=== PATIENT | female | born 1950 | race Caucasian/White ===

== ENCOUNTER → 2016-11-14 | Outpatient (CLI) | payer MEDICARE, OTHER ==
[2016-11-14 10:34] LABS: BASOPHILS % (AUTO) 1 % (0-2); EOSINOPHILS # (AUTO) 0.3 10^3uL; EOSINOPHILS % (AUTO) 4 % (0-4); MEAN CORPUSCULAR HGB CONC 33.4 g/dL (31.0-37.0); MEAN CORPUSCULAR VOLUME 94 FL (80-100); MONOCYTES # (AUTO) 0.4 X10^3; MONOCYTES % (AUTO) 7 % (3-11); NEUTROPHILS # (AUTO) 2.9 X10^3; NEUTROPHILS % (AUTO) 52 % (51-67); PLATELET COUNT 111 10^3uL (150-450); WHITE BLOOD COUNT 5.62 10^3uL (4.0-11.0)
[2016-11-14 10:49] LABS: ALBUMIN 4.5 g/dL (3.4-5.0); ANION GAP 16.1 MEQ/L (3-15); BILIRUBIN,URINE Negative (Negative); CALCULATED IONIZED CALCIUM 4.1 mg/dL (3.8-4.6); CLARITY,URINE Clear; COLOR,URINE Yellow; GLUCOSE, URINE (UA) Negative (Negative); LEUKOCYTE ESTERASE ,URINE Trace (Negative); UROBILINOGEN,URINE 0.2 mg/dL (0.2-1.0)
--- NOTE | 2016-11-14 11:00 | Diagnostic Imaging Report ---
INDICATION: Dyspnea. Yearly physical examination. History of hypertension.. TECHNIQUE: Two view chest 10:37 AM CORRELATION STUDY: 12/25/2015 FINDINGS: The heart size is borderline. The mediastinal configuration and pulmonary vasculature are within normal limits. The lungs are clear with no consolidating infiltrate. There is no significant pleural effusion or pneumothorax. Visualized osseous structures are unremarkable. IMPRESSION: 1. Borderline heart size. Dictated by: Dictated on workstation # [id number]
[2016-11-14 12:06] LABS: MEAN CORPUSCULAR HEMOGLOBIN 31.3 PG (26.0-34.0)
[2016-11-14 12:09] LABS: URINE CENTRIFUGED VOLUME 12 mL
[2016-11-14 12:10] LABS: RBC,URINE 0-2 /HPF
== END ==
LOC: LAB 10:06
PROVIDERS: ATTEND Family Medicine
DX: R06.00 Dyspnea, unspecified (principal); I49.8 Other specified cardiac arrhythmias; R79.89 Other specified abnormal findings of blood chemistry; E78.2 Mixed hyperlipidemia; D50.8 Other iron deficiency anemias; E13.65 Other specified diabetes mellitus with hyperglycemia; E03.4 Atrophy of thyroid (acquired); M81.0 Age-related osteoporosis without current pathological fracture
CPT/HCPCS: 36415; 71020; 80053; 80061; 81003; 81015; 82306; 83036; 84436; 84443; 85025; 87088; 93005